=== PATIENT | female | born 1975 | race Caucasian/White ===

== ENCOUNTER 2022-07-15 14:50 | Emergency (ER) | payer OTHER ==
[~2022-07-15] VITALS: Ht 160 cm; Wt 114.0 kg
[2022-07-15] MEDS ORDERED: ZESTRIL5 M1 PO (16:17)
[2022-07-15] MEDS ORDERED: ADDERALL30 MG PO (16:17)
[2022-07-15 16:21] VITALS: BP 119/69
[2022-07-15 17:17] LABS: URINE BILIRUBIN - DIPSTICK NEGATIVE (NEGATIVE); URINE BLOOD DIPSTICK NEGATIVE (NEGATIVE); URINE COLOR YELLOW; URINE GLUCOSE - DIPSTICK NEGATIVE (NEGATIVE); URINE KETONE NEGATIVE (NEGATIVE); URINE LEUK ESTERASE TRACE (NEGATIVE); URINE NITRITE - DIPSTICK NEGATIVE (Negative); URINE PROTEIN - DIPSTICK NEGATIVE (NEG-TRACE)
[2022-07-15] MEDS ORDERED: NAPROXEN500 MG PO (19:07)
[2022-07-15] MEDS ORDERED: CYCLOBENZAPRINE10 MG PO (19:07)
[2022-07-15 19:54] VITALS: BP 119/69
== END 2022-07-15 19:58 | disposition home or self-care (01) | DRG 552 ==
LOC: ED 14:50
PROVIDERS: Nurse Practitioner
DX: S16.1XXA Strain of muscle, fascia and tendon at neck level, initial encounter (principal); V49.50XA Passenger injured in collision with unspecified motor vehicles in traffic accident, initial encounter; I10 Essential (primary) hypertension; M25.511 Pain in right shoulder